=== PATIENT | female | born 2000 | race Caucasian/White ===

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

== ENCOUNTER 2023-07-26 16:40 | Outpatient (CLI) | payer OTHER, SELFPAY ==
[2023-07-26 18:58] LABS: Vitamin D 25 Hydroxy 36.1 ng/mL
== END 2023-07-26 16:41 | disposition home or self-care (01) ==
LOC: ANHLAB 16:45
PROVIDERS: PCP Physician Assistant; Visit Provider Nurse Practitioner
DX: E55.9 Vitamin D deficiency, unspecified (principal)
CPT/HCPCS: 36415; 82306

== ENCOUNTER 2024-03-03 07:43 | Emergency (ER) | payer OTHER, SELFPAY ==
[2024-03-03 07:46] VITALS: BP 130/104; PULSE 102; RESP 22; TEMP 36.6; O2SAT 100
[2024-03-03] MEDS: ONDANSETRON INJ 4 MG/2 ML VIAL IV PUSH (08:03)
[2024-03-03] MEDS: SODIUM CHLORIDE 0.9% IV 1,000 ML 999 ML IV CONT ×2 (08:03→08:42)
[2024-03-03 08:04] VITALS: BP 131/84; PULSE 85; RESP 17; O2SAT 100
[2024-03-03 08:08] LABS: Basophils Percent Auto 0.3 % (0.2-1.2); Hematocrit 45.1 % (37.0-47.0); Hemoglobin 15.6 g/dL (12.0-15.0); Immature Granulocyte Absolute 0.02 K/mm3 (0.00-0.031); Immature Granulocyte Percent A 0.3 % (0-0.5); Mean Corpuscular HGB Conc 34.6 g/dl (32-36); Mean Corpuscular Hemoglobin 30.9 pg (26-34); Mean Corpuscular Volume 89.3 fl (80-100); Mean Platelet Volume 9.6 fl (7.4-10.4); Monocytes Absolute Auto 0.2 K/mm3 (0.1-0.6); Monocytes Percent Auto 2.4 % (2.6-8.5); Neutrophils Absolute Auto 6.7 K/mm3 (1.3-6.7); Platelet Count Result 256 k/mm3 (150-375); Red Blood Count 5.05 M/mm3 (4.2-5.4); Red Cell Distribution Width 12.3 % (11.5-14.5); White Blood Count 7.5 K/mm3 (4.5-10.0)
[2024-03-03 08:17] LABS: Alanine Aminotransferase 57 U/L (6-35); Albumin Level 5.2 g/dL (3.5-5.1); Alkaline Phosphatase 65 U/L (38-126); Anion Gap 14 mmol/L (4-12); Aspartate Amino Transferase 57 U/L (14-36); Bilirubin,Total 0.9 mg/dL (0.2-1.3); Blood Urea Nitrogen 16 mg/dL (7-17); Calcium 9.9 mg/dL (8.4-10.2); Carbon Dioxide 18 mmol/L (22-30); Chloride 109 mmol/L (98-107); Estimated CRCL calculation 89 ml/min; Estimated Glomerular Filt Rate > 60; Glucose 160 mg/dL (65-110); Lipase 146 U/L (23-300); Potassium 3.6 mmol/L (3.4-5.0); Sodium 141 mmol/L (137-145)
[2024-03-03 08:38] VITALS: BP 128/91; PULSE 96; RESP 20; TEMP 36.6; O2SAT 100
[2024-03-03 09:15] LABS: Appearance Urine Cloudy (Clear); Bacteria Urine Rare /hpf; Bilirubin Urine Negative (Negative); Blood Urine Negative (Negative); Color Urine Yellow (Yellow); Glucose Urine UA Negative (Negative); Ketones Urine 3+ mg/dL (Negative); Leukocyte Esterase Ur Trace LEU/UL (Negative); Need Manual Microscopic Reviewed; Nitrate Urine Negative (Negative); Protein Urine 1+ mg/dL (Negative); RBC Urine 0-2 /hpf (0-2); Specific Grav Ur 1.023 (1.001-1.035); Squamous Epithelial Cell Urine Few /hpf (Few)
[2024-03-03 09:16] LABS: Add Urine Microscopic? YES
[2024-03-03 10:41] LABS: Anion Gap 13 mmol/L (4-12); Blood Urea Nitrogen 12 mg/dL (7-17); Calcium 8.9 mg/dL (8.4-10.2); Carbon Dioxide 13 mmol/L (22-30); Chloride 114 mmol/L (98-107); Estimated CRCL calculation 105 ml/min; Estimated Glomerular Filt Rate > 60; Glucose 113 mg/dL (65-110); Potassium 3.4 mmol/L (3.4-5.0); Sodium 140 mmol/L (137-145)
[2024-03-03] MEDS: METOCLOPRAMIDE HCL INJ 10 MG/2 ML VIAL 5 MG IV PUSH (10:43)
[2024-03-03] MEDS: SODIUM CHLORIDE 0.9% IV 1,000 ML 150 ML IV CONT (10:45)
[2024-03-03 10:46] VITALS: BP 127/87; PULSE 89; RESP 12; O2SAT 100
--- NOTE | 2024-03-03 10:56 | ED.NAVMDI ---
HPI - Nausea/Vomiting/Diarrhea General Chief complaint: Nausea/Vomiting/Diarrhea Stated complaint: N/V, headache Time Seen by Provider: 03/03/24 07:46 Source: patient and family Mode of arrival: ambulatory Limitations: no limitations History of Present Illness HPI Narrative: 23-year-old otherwise healthy here with the complaints of nausea, vomiting, diarrhea since last night. Patient states that she felt extremely tired and dehydrated. She has no history of fever or chills. Denies any blood in stool. MD elicited complaint: nausea, vomiting and diarrhea Description of vomiting: watery Description of diarrhea: watery Associated nausea: Yes Associated abdominal pain: No Severity: moderate Exacerbating factors: none Related Data Home Medications Medication Instructions Recorded Confirmed ferrous sulfate 325 mg (65 mg 325 mg PO BID 03/11/20 04/06/20 iron) tablet (Iron (ferrous sulfate)) vitamin with calcium 1 tablet PO DAILY 03/11/20 04/06/20 no.72-iron 27 mg-folic acid 1 mg tablet ( Vitamins Plus Low Iron) lactase 3,000 unit tablet (Lactaid) 3,000 unit PO DAILY 04/06/20 04/06/20 valacyclovir 500 mg tablet 500 mg PO DAILY 04/06/20 04/06/20 Allergies Allergy/AdvReac Type Severity Reaction Status Date / Time No Known Allergies Allergy Verified 03/03/24 07:46 Review of Systems Review of Systems: All systems reviewed & are unremarkable except as noted in HPI and below Constitutional: Constitutional: Reports no additional constitutional complaints Eyes: Eyes: Reports no additional eye complaints ENT: Reports system reviewed and no additional complaints, except as documented Cardiovascular: Cardiovascular: Reports no additional cardiovascular complaints Respiratory: Respiratory: Reports no additional respiratory complaints Gastrointestinal: Gastrointestinal: Reports as per HPI Musculoskeletal: Musculoskeletal: Reports no additional musculoskeletal complaints PMFSH Past Medical History Medical History Anxiety Depression Dizzy spells Hx of migraines Family History Family History Mother Family history of lupus erythematosus Grandparent Liver cancer Lung cancer Pancreas cancer Cerebrovascular accident Father Hemochromatosis Hypertension Social History Social History Smoking status: Former smoker Tobacco type: e-cigarettes/vaping Second hand tobacco smoke exposure: No Alcohol intake: never Substance use: former Spiritual care concerns: No Exam Narrative: GENERAL: Well-appearing, well-nourished, and in no acute distress. HEAD: Normocephalic, atraumatic. EYES: PERRLA and EOMI. ENT: Nares clear, no rhinorrhea or epistaxis. Mucous membranes moist. NECK: Supple. CHEST: Clear to auscultation. No respiratory distress. HEART: Regular rate and rhythm. No murmur heard. Normal peripheral pulses. ABDOMEN: Soft, nontender, nondistended, normal active bowel sounds. EXTREMITIES: Normal range of motion. No edema. SKIN: Warm, dry, no rash. NEURO: No focal deficits. Alert and oriented x3. PSYCH: Normal mood and affect. Course Course Emergency Course: Her initial lab work showed she had an and cap with the high blood sugar and a low bicarb after hydration her anion gap corrected and she is feeling much better. Advised her to drink more fluids as tolerated. Advised to follow with her primary doctor as Vital Signs Vital signs: Vital Signs Temperature 36.6 C 03/03/24 07:46 Pulse Rate 102 H 03/03/24 07:46 Respiratory Rate 22 H 03/03/24 07:46 Blood Pressure 130/104 H 03/03/24 07:46 Pulse Oximetry 100 03/03/24 07:46 Oxygen Delivery Room Air 03/03/24 07:46 Temperature 36.6 C 03/03/24 08:38 Pulse Rate 89 03/03/24 10:46 Respiratory Rate 12 03/03/24 10:46 Blood Pres
[2024-03-03 10:58] LABS: Hemoglobin A1C 4.5 % (<5.7)
[2024-03-03 11:13] VITALS: BP 120/84; PULSE 96; RESP 20; TEMP 36.6; O2SAT 100
== END 2024-03-03 11:13 | disposition home or self-care (01) ==
PROVIDERS: Emergency Provider Family Medicine; PCP Physician Assistant
DX: K52.9 Noninfective gastroenteritis and colitis, unspecified (principal); Z87.891 Personal history of nicotine dependence; Z79.899 Other long term (current) drug therapy
CPT/HCPCS: 36415; 80048; 80053; 81001; 81025; 83036; 83690; 85025; 87086; 87088; 96361; 96374; 96375; 99284; J2405; J2765; J7030